=== PATIENT | male | born 1985 | race Caucasian/White ===

== ENCOUNTER 2021-09-06 20:41 | Emergency (ER) | payer OTHER ==
[2021-09-06] MEDS ORDERED: Sodium Chloride 0.9% 10 ML Syringe FLUSH PRN (21:08)
--- NOTE | 2021-09-06 22:37 | EDM.PDOC ---
ED HPI GENERAL MEDICAL PROBLEM - General Chief Complaint: Skin Complaint Stated Complaint: LEFT MIDDLE FINGER INFECTED Time Seen by Provider: 09/06/21 21:04 Source of Information: Reports: Patient History Limitations: Reports: No Limitations - History of Present Illness INITIAL COMMENTS - FREE TEXT/NARRATIVE: Matt is a 35-year-old male presenting to the ED for evaluation of worsening swelling and redness involving the base of his left third finger. The patient states that the area started out like a folliculitis about 4 days ago. He has had it on this finger before and he was seen at the [facility] walk-in clinic 2 days ago and was started on Bactrim for presumed MRSA cellulitis. He has had a total of 4 doses thus far and has had significant worsening of the wound in cluding increased swelling, pain, redness that is now starting to track up the dorsal left hand. The patient is unsure why the wound is getting worse instead of better as Bactrim has worked previously. There is some purulent drainage from the central region of this wound. He apparently did sterilize a small knife and made an incision into the wound to allow to start to drain. Left Finger-Middle Pain Score (Numeric/FACES): 3 - Related Data Allergies Allergy/AdvReac Type Severity Reaction Status Date / Time No Known Allergies Allergy Verified 09/06/21 21:02 Home Meds: Home Meds Famotidine 1 tab PO DAILY 09/06/21 [History] Levothyroxine 1 tab PO DAILY 09/06/21 [History] Past Medical History Gastrointestinal History: Reports: Hiatal Hernia Endocrine/Metabolic History: Reports: Hyperthyroidism - Infectious Disease History Infectious Disease History: Reports: Chicken Pox - Past Surgical History HEENT Surgical History: Reports: JONOIK Social & Family History - Tobacco Use Tobacco Use Status *Q: Current Status Unknown - Caffeine Use Caffeine Use: Reports: None - Recreational Drug Use Recreational Drug Use: No ED ROS GENERAL - Review of Systems Review Of Systems: See Below Constitutional: Reports: No Symptoms Musculoskeletal: Reports: Hand Pain (Pain and swelling in the left third finger) Skin: Reports: Erythema (Erythema, swelling, increased tenderness and increased heat in the proximal left third finger) Neurological: Reports: No Symptoms ED EXAM, SKIN/RASH Exam: See Below Exam Limited By: No Limitations General Appearance: Alert, No Apparent Distress Extremities: Normal Capillary Refill, Limited Range of Motion (Secondary to the swelling of the finger), Increased Warmth (Proximal left third finger), Redness (Proximal left third finger) Neurological: Alert, Oriented, Normal Cognition, No Motor/Sensory Deficits Course - Vital Signs Last Recorded V/S: Last Vital Signs Temp 36.7 C 09/06/21 21:00 Pulse 99 09/06/21 21:00 Resp 16 09/06/21 21:00 BP 131/88 09/06/21 21:00 Pulse Ox 99 09/06/21 21:00 - Orders/Labs/Meds Orders: Active Orders 24 hr Category Date Time Status CULTURE WOUND + SMEAR [RM] Stat Lab 09/06/21 21:13 Results Sodium Chloride 0.9% [Saline Flush] Med 09/06/21 21:08 Active 10 ml FLUSH ASDIRECTED PRN Vancomycin 1.5 gm Med 09/06/21 21:41 Active Sodium Chloride 0.9% [Normal Saline] 250 ml IV ONETIME Saline Lock Insert [OM.PC] Routine Oth 09/06/21 21:08 Ordered Medication Orders Vancomycin HCl 1.5 gm/ Sodium (Chloride) 250 mls @ 150 mls/hr IV ONETIME ONE Stop: 09/06/21 23:20 Last Admin: 09/06/21 22:21 Dose: 150 mls/hr Documented by: DON Sodium Chloride (Sodium Chloride 0.9% 10 Ml Syringe) 10 ml FLUSH ASDIRECTED PRN PRN Reason: Keep Vein Open Last Admin: 09/06/21 21:21 Dose: 10 ml Documented by: DON Labs: Laboratory Tests 09/06/21 09/06/21 Range/Units 21:24 21:24 WBC 14.4 H (4.5-11.0) K/uL RBC 5.49 (4.30-5.90) M/uL Hgb 14.6 (12.0-15.0) g/dL Hct 42.4 (40.0-54.0) % MCV 77 L (80-98) fL MCH 27 (27-31) pg MCHC 34 (32-36) % Plt Count 221 (150-400) K/uL Neut % (Auto) 67.8 H (36-66) % Lymph % (Auto) 20.4 L (24-44) % Atlantic % (Auto) 9.9 H (2-6) % Eos % (Auto) 1.5 L (2-4) % Baso % (Auto) 0.4 (0-1) % C-Reactive Protein 3.94 H (0.0-0.3) mg/dL Meds: Medications Generic Name Dose Route Start Last Admin Trade Name Freq PRN Reason Stop Dose Admin Vancomycin HCl 1.5 gm/ Sodium 250 mls @ 150 mls/hr 09/06/21 21:41 09/06/21 22:21 Chloride IV 09/06/21 23:20 150 mls/hr ONETIME ONE Administration Sodium Chloride 10 ml 09/06/21 21:08 09/06/21 21:21 Sodium Chloride 0.9% 10 Ml Syringe FLUSH 10 ml ASDIRECTED PRN Administration Keep Vein Open - Re-Assessments/Exams Free Text/Narrative Re-Assessment/Exam: 09/06/21 23:01 since labs showing a leukocytosis of 14.4 with 68% neutrophils. His C-reactive protein is also elevated. A wound culture and Gram stain have been obtained. The Gram stain showed gram-positive cocci but did not differentiate whether it was in chains or clusters. I suspect that the patient has MRSA cellulitis that may be resistant to sulfamethoxazole trimethoprim so we are initiating IV antibiotics with vancomycin 1500 mg twice daily for the next 5 days. We will continue to watch progress with this and adjust dosing accordingly. We will schedule the patient to receive the vancomycin at 5 AM and 5 PM daily which should work with his schedule for work at [facility] [employer] Departure - Departure Time of Disposition: 00:00 Disposition: Home, Self-Care 01 Clinical Impression: Cellulitis due to methicillin-resistant Staphylococcus aureus (MRSA) - Discharge Information Instructions: MRSA Infection, Self-Care, Adult Referrals: Angle Frances MD [Primary Care Provider] - Forms: ED Department Discharge Care Plan Goals: I have scheduled you for infusion of vancomycin 1500 mg twice daily for the next 5 days. We have set your next dose to be 5 AM making your scheduled doses 5 AM and 5 PM which should work with your work schedule. This will also allow us to make sure that the wound is improving and not worsening. Sepsis Event Note (ED) - Focused Exam Vital Signs: Vital Signs Temp Pulse Resp BP Pulse Ox 09/06/21 21:00 36.7 C 99 16 131/88 99 - My Orders Last 24 Hours: My Active Orders 09/06/21 21:08 Sodium Chloride 0.9% [Saline Flush] 10 ml FLUSH ASDIRECTED PRN Saline Lock Insert [OM.PC] Routine 09/06/21 21:13 CULTURE WOUND + SMEAR [RM] Stat 09/06/21 21:41 Vancomycin 1.5 gm Sodium Chloride 0.9% [Normal Saline] 250 ml IV ONETIME - Assessment/Plan Last 24 Hours: My Active Orders 09/06/21 21:08 Sodium Chloride 0.9% [Saline Flush] 10 ml FLUSH ASDIRECTED PRN Saline Lock Insert [OM.PC] Routine 09/06/21 21:13 CULTURE WOUND + SMEAR [RM] Stat 09/06/21 21:41 Vancomycin 1.5 gm Sodium Chloride 0.9% [Normal Saline] 250 ml IV ONETIME
== END 2021-09-07 00:06 | disposition home or self-care (01) ==
LOC: JP.ED 20:41
DX: L03.012 Cellulitis of left finger (principal); B95.62 Methicillin resistant Staphylococcus aureus infection as the cause of diseases classified elsewhere; E03.9 Hypothyroidism, unspecified; Z79.899 Other long term (current) drug therapy
CPT/HCPCS: 36415; 85025; 86140; 87070; 87077; 87186; 87205; 96365; 96366; 99283; J3370; J7050